=== PATIENT | male | born 1960 | race Caucasian/White ===

== ENCOUNTER 2018-02-27 14:39 | Emergency (ER) | payer OTHER ==
[2018-02-27 14:55] VITALS: BP 135/84; PULSE 81; RESP 16; TEMP 98.1; O2SAT 96
--- NOTE | 2018-02-27 15:26 | C.PDOC ---
History Of Present Illness 57 y/o male presents to the ER complaining of not being able to see with his right eye for the past 1 month. Patient states that he has intermittent blurriness in his right eye, and reports trouble seeing and driving at night from bilateral eyes. Patient reports that he wears glasses and his glasses prescription was changed 7 months ago. Denies having injury, erythema, discharge, pain, itching, double vision, and foreign body sensation. Time Seen by Provider: 02/27/18 15:17 Chief Complaint (Nursing): Eye Problem History Per: Patient History/Exam Limitations: no limitations Onset/Duration Of Symptoms: Days Severity: Moderate Past Medical History Reviewed: Historical Data, Nursing Documentation, Vital Signs Vital Signs: Last Vital Signs Temp 98.1 F 02/27/18 14:53 Pulse 81 02/27/18 14:53 Resp 16 02/27/18 14:53 BP 135/84 02/27/18 14:53 Pulse Ox 96 02/27/18 14:53 - Medical History PMH: No Chronic Diseases Surgical History: No Surg Hx Family History: States: No Known Family Hx - Social History Hx Alcohol Use: No Hx Substance Use: No - Immunization History Hx Tetanus Toxoid Vaccination: No Hx Influenza Vaccination: No Hx Pneumococcal Vaccination: No Review Of Systems Except As Marked, All Systems Reviewed And Found Negative. Constitutional: Negative for: Fever, Chills Eyes: Positive for: Vision Change. Negative for: Pain, Redness Physical Exam - Physical Exam Appears: Non-toxic, No Acute Distress Skin: Normal Color, Warm, Dry Head: Atraumatic, Normacephalic Eye(s): bilateral: Normal Inspection, PERRL, EOMI, Other (No redness, discharge, crusting on eyelashes, eyelid inflamation. No foreign body, cataract) Nose: Normal Oral Mucosa: Moist Neck: Supple Chest: Symmetrical Extremity: Bilateral: Atraumatic, Normal ROM Neurological/Psych: Oriented x3, Normal Speech Gait: Steady ED Course And Treatment O2 Sat by Pulse Oximetry: 96 (RA) Pulse Ox Interpretation: Normal Medical Decision Making Medical Decision Making: Impression: Vision Changes, most likely age-related No signs of cataract, abnormal pupil, conjunctivitis or clinical signs of cellulitis. Patient has been discharged and instructed to follow up with manager business management for further evaluation and possible change in prescription for glasses. Disposition Counseled Patient/Family Regarding: Diagnosis, Need For Followup - Disposition Referrals: Alejandro Larios MD [Staff Provider] - Disposition: HOME/ ROUTINE Disposition Time: 15:40 Condition: GOOD Additional Instructions: It is advised that your follow up with warehouse distribution specialist for further evaluation of your eyes Instructions: Presbyopia and Refractive Errors, Age-Related Vision Loss Forms: [employer] (Khmer) - POA Present On Arrival: None - Clinical Impression Clinical Impression: Vision loss night, Presbyopia - PA / CANOPY INSPECTOR / Resident Statement MD/DO has reviewed & agrees with the documentation as recorded. - Scribe Statement The provider has reviewed the documentation as recorded by the Benitezibe Ofelia Jean-Baptiste Provider Attestation All medical record entries made by the Scribe were at my direction and personally dictated by me. I have reviewed the chart and agree that the record accurately reflects my personal performance of the history, physical exam, medical decision making, and the department course for this patient. I have also personally directed, reviewed, and agree with the discharge instructions and disposition.
== END 2018-02-27 15:45 | disposition home or self-care (01) ==
LOC: C.ER 14:39
DX: H54.7 Unspecified visual loss (principal); H52.4 Presbyopia